=== PATIENT | male | born 1985 | race Caucasian/White ===

== ENCOUNTER 2016-09-05 01:13 | Emergency (ER) | payer SELFPAY ==
[~2016-09-05] VITALS: Ht 177.8 cm; Wt 87.5 kg
--- NOTE | 2016-09-05 01:13 | NUR ---
Patient was BIB [facility] and taken to [facility].
[2016-09-05 01:14] VITALS: BP 152/80
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
--- NOTE | 2016-09-05 01:34 | NUR ---
Dr. Lozada evaluating patient at bedside.
[2016-09-05 01:37] VITALS: BP 152/80
--- NOTE | 2016-09-05 01:37 | NUR ---
PATIENT BIB [facility] [employer]. PATIENT EXAMINED BY DR. HENRY. PATIENT MEDICALLY CLEARED AND RELEASED IN CUSTODY IN STABLE CONDITION. ORIGINAL PRE-BOOK FORM GIVEN TO OFFICER GABRIELA.
== END 2016-09-05 01:37 ==
LOC: MED 01:13
DX: Z02.89 Encounter for other administrative examinations (principal); R03.0 Elevated blood-pressure reading, without diagnosis of hypertension; V89.2XXA Person injured in unspecified motor-vehicle accident, traffic, initial encounter; Y93.89 Activity, other specified; Y92.89 Other specified places as the place of occurrence of the external cause; Y99.8 Other external cause status